=== PATIENT | male | born 1960 | race Caucasian/White ===

== ENCOUNTER 2020-09-03 09:27 | Emergency (ER) | payer BC ==
[2020-09-03 09:37] VITALS: BP 177/111; PULSE 65; RESP 18; TEMP 98.2
[2020-09-03] MEDS ORDERED: GELATIN SPONGE,ABSORB (SMALL) 1 EACH SPONGE TOPICAL STA (09:50)
--- NOTE | 2020-09-03 10:04 | ED ---
Wound/Laceration HPI - General Chief Complaint: Wound/Laceration Stated Complaint: leg pain/discharge Time Seen by Provider: 09/03/20 09:40 Source: patient, RN notes reviewed, old records reviewed Mode of arrival: ambulatory Limitations: no limitations - History of Present Illness Initial Comments: 52-year-old male presents emergency Department chief complaint of a laceration and bleeding over the right lower leg. Patient reports that her glands work today. She reports that he stands on his feet most of the day. He is not on blood thinners. He reports he's had this open and bleed once before. - Related Data Allergies Allergy/AdvReac Type Severity Reaction Status Date / Time No Known Allergies Allergy Verified 09/03/20 09:36 Review of Systems ROS Statement: Those systems with pertinent positive or pertinent negative responses have been documented in the HPI. ROS Other: All systems not noted in ROS Statement are negative. Past Medical History Past Medical History: Hypertension History of Any Multi-Drug Resistant Organisms: None Reported Past Surgical History: No Surgical Hx Reported Past Psychological History: No Psychological Hx Reported Smoking Status: Never smoker Past Alcohol Use History: Daily Past Drug Use History: None Reported General Exam - General Exam Comments Initial Comments: Alert and oriented 60-year-old male. No distress. Limitations: no limitations General appearance: alert, in no apparent distress Head exam: Present: atraumatic, normocephalic, normal inspection Eye exam: Present: normal appearance, PERRL, EOMI. Absent: scleral icterus, conjunctival injection, periorbital swelling ENT exam: Present: normal exam, mucous membranes moist Neck exam: Present: normal inspection. Absent: tenderness, meningismus, lymphadenopathy Respiratory exam: Present: normal lung sounds bilaterally. Absent: respiratory distress, wheezes, rales, rhonchi, stridor Cardiovascular Exam: Present: regular rate, normal rhythm, normal heart sounds. Absent: systolic murmur, diastolic murmur, rubs, gallop, clicks GI/Abdominal exam: Present: soft, normal bowel sounds. Absent: distended, tenderness, guarding, rebound, rigid Extremities exam: Present: normal inspection, full ROM, normal capillary refill, other (Patient has a small pinpoint puncture wound over the right lower leg. Evidence of bleeding varicose vein.). Absent: tenderness, pedal edema, joint swelling, calf tenderness Back exam: Present: normal inspection Neurological exam: Present: alert, oriented X3, CN II-XII intact Psychiatric exam: Present: normal affect, normal mood Skin exam: Present: warm, dry, intact, normal color. Absent: rash Course Vital Signs 09/03/20 09:33 Temperature 98.2 F Pulse Rate 65 Respiratory 18 Rate Blood Pressure 177/111 O2 Sat by Pulse 97 Oximetry Procedures - Laceration Laceration #1 Site: lower extremity Size (cm): 1 Description: linear Size of Sutures: 5-0 Number of Sutures: 1 Technique: other (figure 8 sutures) Patient Tolerated Procedure: well, no complications Additional Comments: gel foam and feliciano wrap over area Medical Decision Making - Medical Decision Making 17-year-old male presents with some enzymes have bleeding small varicose vein on the right larger many. The vessels ligated with a figure 8 suture. Patient had Gelfoam placed and had Feliciano wrap over her leg. Advised following up with primary care doctor for suture removal or to return here. Discussed keeping off of the legs are is much as possible. Discussed return parameters. Disposition Clinical Impression: Bleeding from varicose vein Disposition: HOME SELF-CARE Condition: Good Instructions (If sedation given, give patient instructions): Care For Your Stitches (ED) Additional Instructions: Please return to the emergency room in 7 days to have sutures removed. Please leave wound covered for the first 24-48 hours and then leave open to air after that time. Please use clean soap and water to clean the suture area to prevent scabbing over the top of your sutures. Please watch for any signs of infection which may include but not limited to increased pain, swelling, redness, fever or chills. Please return to the emergency room if any signs of infection do occur. Please return to the emergency room for any other concerns or complications. Is patient prescribed a controlled substance at d/c from ED?: No Referrals: Hemal Mcgovern DO [Primary Care Provider] - 1-2 days Time of Disposition: 10:04
== END 2020-09-03 10:14 | disposition home or self-care (01) ==
LOC: EC 09:27
DX: I83.891 Varicose veins of right lower extremity with other complications (principal)
CPT/HCPCS: 12001; 99283

== ENCOUNTER → 2022-07-20 | Outpatient (CLI) | payer BC ==
--- NOTE | 2022-07-20 14:16 | XR ---
EXAMINATION TYPE: XR hand complete RT DATE OF EXAM: 07/20/2022 COMPARISON: NONE HISTORY: 62-year-old male [id number], puncture wound, foreign body right hand. TECHNIQUE: 3 views FINDINGS: Moderate scattered osteoarthritic change throughout. There may be some areas of chronic marginal eros ion such as at the second third metacarpal heads, second PIP joint, fifth MCP joint. Prominent subcor tical cysts radiocarpal joint. No soft tissue calcifications or retained foreign body is identified. No acute fracture or dislocation. IMPRESSION: 1. No definite retained foreign body identified. 2. Scattered osteoarthritic change throughout. There may be some areas of chronic marginal erosions a s described above. Additional prominent subcortical cysts at the wrist joint. Correlate for possible treated inflammatory arthropathy.
== END | disposition home or self-care (01) ==
LOC: RADXRMAIN 13:50
PROVIDERS: ATTEND Emergency Medicine
DX: M19.041 Primary osteoarthritis, right hand (principal)